=== PATIENT | male | born 1980 | race Caucasian/White ===

== ENCOUNTER → 2020-10-07 12:08 | Outpatient (BNVA) | payer OTHER, SELFPAY | PROVIDERS: Visit Provider Nurse Practitioner Family | DX: Z20.828 Contact with and (suspected) exposure to other viral communicable diseases (principal); J06.9 Acute upper respiratory infection, unspecified | CPT/HCPCS: 87635 ==

== ENCOUNTER 2021-06-10 15:46 | Emergency (ER) | payer SELFPAY ==
[2021-06-10 15:36] VITALS: BP 169/116; PULSE 108; RESP 18; TEMP 36.7; O2SAT 97; BMI 35.2
--- NOTE | 2021-06-10 15:49 | XRR_ITS ---
PROCEDURE INFORMATION: Exam: XR Chest Exam date and time: 06/10/2021 3:49 PM Age: 40 years old Clinical indication: Cough and dyspnea; Additional info: Dyspnea/cough, high blood pressure TECHNIQUE: Imaging protocol: XR of the chest. Views: 1 view. COMPARISON: No relevant prior studies available. FINDINGS: Lungs: The lungs are clear. Pleural spaces: Unremarkable. No pleural effusion. No pneumothorax. Heart/Mediastinum: Unremarkable. No cardiomegaly. Bones/joints: Unremarkable. XR/XR chest 1V portable [id number] IMPRESSION: No acute cardiopulmonary abnormality.
--- NOTE | 2021-06-10 15:49 | ECG_ITS ---
[facility] Test Date: 2021-06-10 Pat Name: Eyal Morrison Department: Room: Gender: Male Testing Shaking Shipping: : 1980 Requested By: Marvin Chin Order Number: [id number] Golden MD: Daysi Maddox M.D. Measurements Intervals [place] Rate: 111 P: 23 [place]: 120 QRS: 24 QRSD: 84 T: 46 QT: 339 QTc: 461 Interpretive Statements SINUS TACHYCARDIA ABNORMAL RHYTHM ECG No previous ECG available for comparison Electronically Signed On 06-11-2021 7:35:14 CDT by Daysi Maddox M.D. [id number]
[2021-06-10 16:05] LABS: Basophils # 0.1 10^3/uL (0.0-0.1); Basophils % 0.5 %; Eosinophils # 0.2 10^3/uL (0.0-0.8); Hematocrit 48.6 % (42.0-52.0); Lymphocytes # 3.4 10^3/uL (0.8-4.8); Lymphocytes % 19.3 %; Mean Corpuscular Hemoglobin 31.1 pg (28.0-34.0); Mean Corpuscular Volume 88.8 fL (80-94); Mean Platelet Volume 9.6 fL (7.4-10.4); Monocytes # 1.2 10^3/uL (0.2-0.9); Monocytes % 6.6 %; Neutrophils % 72.2 %; Nucleated Red Blood Cells % 0 %; Platelet Count 409 10^3/cmm (130-400); Red Blood Count 5.47 10^6/uL (4.1-5.3); Red Cell Distribution Width 12.4 % (12.1-15.1); White Blood Count 17.3 10^3/uL (4.0-10.0)
[2021-06-10] MEDS: metoprolol tartrate 50 mg Tablet PO (16:17)
[2021-06-10] MEDS: metoprolol tartrate 1 mg/1 mL SDV 5 mL 5 MG IVP ×2 (16:17→17:48)
[2021-06-10] MEDS: amlodipine 5 mg Tablet PO ×2 (16:17→17:59)
--- NOTE | 2021-06-10 16:19 | W.ED.GENADLT ---
HPI - General Adult General: Chief complaint: General Medical Stated complaint: high blood pressure History of Present Illness: HPI narrative: 40-year-old male presents emergency room with complaint of accelerated hypertension. This morning he woke up felt shaky. He is not previously had any history of coronary artery disease diabetes. He has had elevated blood pressure in the past but was never treated for it. Currently is a resident of a local [facility]. He has not had any focal neurologic deficits has not had any chest pains no difficulty breathing. Is not recently been using excessive amounts of coffee or decongestants or antihistamines. There is some question of withdrawal from heroin. Onset (ago): hour(s) Relieving factors: none Exacerbating factors: none Associated symptoms: Reports headache(s), malaise and nausea; Deny chest pain, confusion, cough, diaphoresis, decreased appetite, dyspnea, fevers/chills, rash, palpitations, seizures, short of breath, syncope, vomiting or weakness Treatments prior to arrival: none Review of Systems Const: Reports: malaise; Denies: diaphoresis ENMT: Denies: throat pain, ear or mastoid pain, nasal discharge or nasal congestion Card: Denies: chest pain, palpitations or syncope Resp: Denies: dyspnea GI: Reports: nausea; Denies: vomiting : Denies: flank pain, dysuria, urinary frequency or urinary urgency Skin/Breast: Denies: rash Neuro: Reports: headache(s); Denies: confusion Physical Exam Const: COMMON NORMALS: no acute distress GENERAL APPEARANCE: cooperative and comfortable ORIENTATION/CONSCIOUSNESS: Yes awake, Yes oriented to person, Yes oriented to place and Yes oriented to time HENMT: COMMON NORMALS: normocephalic, atraumatic and hearing grossly normal bilaterally HEAD & SCALP: normocephalic and atraumatic Neck/C-Spine: COMMON NORMALS: no JVD Resp: COMMON NORMALS: normal respiratory effort, No retractions, No use of accessory muscles and clear to auscultation bilaterally AUSCULTATION: clear to auscultation bilaterally Cardio: COMMON NORMALS: no JVD, regular rate, regular rhythm and No murmurs present (Cardio) RATE: regular rate RHYTHM: regular rhythm GI: COMMON NORMALS: Soft to palpation and No hepatosplenomegaly present AUSCULTATION: Yes normoactive bowel sounds PALPATION: Yes Soft to palpation, No Tenderness to palpation present (GI), No Guarding due to palpation present (GI) and Yes No hepatosplenomegaly present Extremity: COMMON NORMALS: normal to inspection, capillary refill normal, no clubbing, cyanosis or edema, no calf tenderness and no pedal edema Neuro: SENSORIUM/ORIENTATION: Yes oriented to person, Yes oriented to place and Yes oriented to time Skin: COMMON NORMALS: no rashes or lesions noted GENERAL SKIN EXAM: no rashes or lesions noted Course Vital Signs: Vital signs: Vital Signs Temperature 98.1 F 06/10/21 15:36 Pulse Rate 85 06/10/21 17:32 Respiratory Rate 18 06/10/21 17:32 Blood Pressure 170/112 06/10/21 17:32 Pulse Oximetry 98 06/10/21 17:32 MDM - General Adult MDM Narrative: Medical decision making narrative: Responded antihypertensives. Will discharge home on amlodipine 10 mg daily and clonidine 0.1 twice daily. Follow-up in the next 2 to 3 days to recheck blood pressure. Return if has any worsening problems. Lab Data: Labs: Lab Results 06/10/21 06/10/21 Range/Units 15:46 15:46 WBC 17.3 H (4.0-10.0) 10^3/ uL RBC 5.47 H (4.1-5.3) 10^6/u L Hgb 17.0 H (11.7-16.6) g/dL Hct 48.6 (42.0-52.0) % MCV 88.8 (80-94) fL MCH 31.1 (28.0-34.0) pg MCHC 35.0 (30.0-36.0) g/dL RDW 12.4 (12.1-15.1) % Plt Count 409 H (130-400) 10^3/c mm MPV 9.6 (7.4-10.4) fL Neut % (Auto) 72.2 % Lymph % (Auto) 19.3 % [place] % (Auto) 6.6 % Eos % (Auto) 1.0 % Baso % (Auto) 0.5 % Neut # (Auto) 12.50 H (1.8-7.7) 10^3/u L Lymph # (Auto) 3.4 (0.8-4.8) 10^3/u L [place] # (Auto) 1.2 H (0.2-0.9) 10^3/u L Eos # (Auto) 0.2 (0.0-0.8) 10^3/u L Baso # (Auto) 0.1 (0.0-0.1) 10^3/u L Nucleated RBC % (a uto) 0 % Nucleated RBCs # 0.0 /100WBC Sodium 138 (136-145) mmol/L Potassium 3.2 L (3.5-5.1) mmol/L Chloride 102 (98-107) mmol/L Carbon Dioxide 23 (22-29) mmol/L Anion Gap 16.2 (5-19) BUN 10 (6-20) mg/dL Creatinine 0.9 (0.7-1.2) mg/dL GFR Calculation 93.0 (90-130) mL/min Glucose 125 H (65-115) mg/dL Calculated Osmolal ity 287 (285-295) mOsm/k g Calcium 9.0 (8.5-10.5) mg/dL Total Bilirubin 0.5 (0.15-1.2) mg/dL AST 26 (0-40) U/L ALT 32 (0-41) U/L Alkaline Phosphata se 93 (40-130) IU/L Total Protein 7.6 (6.6-8.7) g/dL Albumin 4.2 (3.5-5.2) g/dL Globulin 3.4 (1.3-4.6) g/dL Discharge Plan Discharge Patient Disposition: Home Clinical Impression: HTN (hypertension) Condition: Stable Prescriptions: New amlodipine 10 mg tablet 10 mg PO DAILY Qty: 30 RF: 0 clonidine HCl 0.1 mg tablet 0.1 mg PO Q12H Qty: 60 RF: 0 Discharge Orders: Discharge ED (Routine); Ordered 06/10/21 Ordered By: Marvin Holcomb Discharge Diet: Usual diet Discharge Activity: Increase activity as tolerated Patient Instructions: Opioid Safety Coding Level of Care Code ED Offset Plate Maker for Chg Fwd Exam Comprehensive
[2021-06-10 16:22] VITALS: BP 175/138; PULSE 94; RESP 16; O2SAT 94
[2021-06-10 16:37] LABS: Alanine Aminotransferase 32 U/L (0-41); Albumin Level 4.2 g/dL (3.5-5.2); Alkaline Phosphatase 93 IU/L (40-130); Anion Gap 16.2 (5-19); Aspartate Amino Transferase 26 U/L (0-40); Blood Urea Nitrogen 10 mg/dL (6-20); Carbon Dioxide 23 mmol/L (22-29); Chloride 102 mmol/L (98-107); Globulin 3.4 g/dL (1.3-4.6); Glucose 125 mg/dL (65-115); Osmolality Calculated 287 mOsm/kg (285-295); Potassium 3.2 mmol/L (3.5-5.1); Sodium 138 mmol/L (136-145); Total Bilirubin 0.5 mg/dL (0.15-1.2); Total Protein 7.6 g/dL (6.6-8.7)
[2021-06-10 17:32] VITALS: BP 170/112; PULSE 85; RESP 18; O2SAT 98
[2021-06-10] MEDS: hyDRALAzine 20 mg/mL INJ 1 mL IVP (17:37)
[2021-06-10 18:05] VITALS: BP 185/117
[2021-06-10] MEDS: cloNIDine 0.1 mg Tablet PO (18:05)
[2021-06-10 18:08] VITALS: BP 153/97; PULSE 87; RESP 18; O2SAT 98
== END 2021-06-10 18:26 | disposition home or self-care (01) ==
PROVIDERS: Emergency Provider Family Medicine
DX: I10 Essential (primary) hypertension (principal)
CPT/HCPCS: 71045; 80053; 85025; 93005; 96374; 96375; 96376; 99284; J0360; J3490